=== PATIENT | male | born 1995 | race Caucasian/White ===

== ENCOUNTER 2017-10-01 12:41 | Outpatient (CLI) | payer BC ==
--- NOTE | 2017-10-01 14:46 | ULT ---
SCROTAL ULTRASOUND TECHNIQUE: Florian scale, color Doppler, and spectral analysis were performed. CLINICAL HISTORY: Scrotal edema. Disorder or male genitalia. FINDINGS: There is Doppler flow demonstrated at each testis. No evidence of an intratesticular mass, bilateral ly. No significant abnormality of either epididymis. Mild right hydrocele formation present. IMPRESSION: 1. No evidence of testicular torsion or mass. 2. Mild hydrocele, right sided. POS: [facility]
== END 2017-10-01 12:42 | disposition home or self-care (01) ==
LOC: ULT 12:41
PROVIDERS: ATTEND Family Medicine
DX: N50.89 Other specified disorders of the male genital organs (principal); N43.3 Hydrocele, unspecified
CPT/HCPCS: 76870; 93976

== ENCOUNTER 2018-12-31 17:01 | Outpatient (CLI) | payer BC ==
[2018-12-31 17:19] LABS: Mean Corpuscular HGB CONC 34.4 g/dL (32.0-36.0); Mean Corpuscular Hemoglobin 31.1 pg (27.0-31.0); Mean Corpuscular Volume 90.6 fL (78.0-98.0); Platelet Count 246 thou/uL (130-400); RBC Distribution Width 11.2 % (11.5-14.5); Red Blood Cell (RBC) Count 5.15 mill/uL (4.70-6.10); White Blood Cell (WBC) Count 4.3 thou/uL (4.8-10.8)
[2018-12-31 17:50] LABS: Anion Gap 10 mmol/L (10-20); BUN (Urea Nitrogen) 11 mg/dL (8.9-20.6); Calc. Creatinine Clearance 0 mL/min (70-130); Calcium 9.8 mg/dL (7.8-10.44); Carbon Dioxide 29 mmol/L (22-29); Chloride 104 mmol/L (98-107); Estimated GFR-MDRD Greater than 90; Glucose 94 mg/dL (70-105); Potassium 4.3 mmol/L (3.5-5.1); Sodium 139 mmol/L (136-145)
== END 2018-12-31 17:02 | disposition home or self-care (01) ==
LOC: LABBT 17:01
PROVIDERS: ATTEND Urology
DX: Z01.812 Encounter for preprocedural laboratory examination (principal); N48.9 Disorder of penis, unspecified
CPT/HCPCS: 80048; 85027

== ENCOUNTER 2019-01-06 06:58 | Day surgery (SDC) | payer BC ==
[2018-12-31 17:06] VITALS: BMI 25.4
[2019-01-06] MEDS ORDERED: CEFAZOLIN 1 GM VIAL ONE (07:16)
[2019-01-06] MEDS ORDERED: Sodium Chloride 0.9% 100 ML ONE (07:17)
[2019-01-06] MEDS ORDERED: Bupivacaine 0.25% HCL 30 ML VIAL ONE (10:11)
[2019-01-06] MEDS ORDERED: Bacitracin Zinc Ointment 30 gm TUBE ONE (10:11)
[2019-01-06] MEDS ORDERED: Fentanyl 100 MCG/2 ML VIAL ONE (10:15)
[2019-01-06] MEDS ORDERED: Silver Nitrate Application 1 EACH ONE (10:49)
[2019-01-06] MEDS ORDERED: Silver Sulfadiazine 1% Cream 50 GM JAR TOP SCH (11:00)
[2019-01-06] MEDS ORDERED: PROPOFOL 200 MG/20 ML VIAL ONE (13:25)
[2019-01-06] MEDS ORDERED: ePHEDrine 50 MG/ML VIAL ONE (13:25)
[2019-01-06] MEDS ORDERED: Ondansetron PF 4 MG/2 ML Vial ONE (13:25)
[2019-01-06] MEDS ORDERED: Dexamethasone 20 MG/5 ML VIAL ONE (13:25)
[2019-01-06] MEDS ORDERED: Lidocaine 1% PF 5 ML VIAL ONE (13:25)
--- NOTE | 2019-01-06 19:29 | OP ---
DATE OF PROCEDURE: 01/06/2019 PREOPERATIVE DIAGNOSIS: Phimosis with indurated component. 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 ANESTHESIA: General with laryngeal mask airway and penile block using 0.5% and 0.25% lidocaine and Marcaine 10 mL total. COMPLICATIONS: Dense adhesions required that the case was extended twice long as normally does with an extra added 30 minutes in order to appropriately release the adhesions to achieve hemostasis and adequately remove the 1.3cm x 1cm x 8mm ball of smegma that had been incorporated near the frenulum. SPECIMEN: Smegma and foreskin. BLOOD LOSS: Less than 50 mL. DRAINS: None. The patient is a 23-year-old male who presented with concern for a mass on his penis and ultimately this felt indurated and was not mobile, so there was concern for cancer versus entrapped smegma. He was set him up for circumcision sooner than later. DESCRIPTION OF PROCEDURE: The patient was brought to the room by Anesthesia, laid on the table in supine position. After being given general anesthetic, he was prepped and draped in sterile fashion. Inguinal regions were palpated, and no nodes were noted. A penile block had been performed using 10mL lidocaine, Marcaine mixture. Then, a circumferential incision was made at the level of the doty with the foreskin reduced. In order to retract the foreskin , a dorsal slit had to be performed. Once this was performed, it was revealed that the left glans was able to be fully exposed with some manual separation. The right was densely adherent on the ventral right portion down to the frenulum itself. A significant amount of time was spent trying to locate the proper plan and follow along this. But the plane was obliterated and fused. It basically had to be chiselled in order to separate it further and expose the edge of the glans--which ultimately resulted in bleeding of the glans that required cautery. It was quite evident early on that the indurated mass was smegma as I was able to see through the mucosa that covered it. As dissection continued, the smegma mass was more mobile as the surrounding tissues were released. Ultimately this had to be sharply transected as it did not pop out since it was now incorparted within the tissues. Once this was finally removed, the two skin edges could be reapproximated using 4-0 and 3-0 chromic. I did use 4-0 Monocryl at the frenulum attachment. Then bacitracin and Silvadene were applied to the incision and the glans respectively. Sterile dressing and a Coban was used for mild compression dressing and wrap. The patient was then awakened and transferred to PACU in stable condition. Job ID: [id number] [facility]
== END 2019-01-06 13:25 | disposition home or self-care (01) ==
LOC: SDC 06:58
PROVIDERS: ATTEND Urology
PROC: 0VTTXZZ Resection of Prepuce, External Approach (ICD-10-PCS; principal; 2019-01-06)
DX: N47.1 Phimosis (principal); N47.5 Adhesions of prepuce and glans penis; J30.2 Other seasonal allergic rhinitis; Z79.899 Other long term (current) drug therapy
CPT/HCPCS: 88304; J0131; J0690; J2001; J3010; J7050; S0020